=== PATIENT | male | born 1935 | race Caucasian/White ===

== ENCOUNTER 2016-08-20 16:02 | Observation (INO) | payer MEDICARE ==
[~2016-08-20 16:02] MED LIST: ADULT ASPIRIN81 MG PO; ALENDRONATE SOD10 MG PO; ALPRAZOLAM OD0.25 MG PO; ASPIR 8181 MG PO; ATORVASTATIN CA10 MG PO; ATROVENT 0.03%30 ML; BISOPROLOL FUMARATE; CALCIUM; CARBIDOPA/LEVO1 EACH PO; COUMADIN2 MG PO; COUMADIN3 M1 PO; COUMADIN3 MG PO; CULTURELLE1 CA1 PO; CULTURELLE1 EACH PO; DIGITEK125 MC1 PO; DIGOX125 MC1 PO; EQL FISH OIL 1,1 CA1 PO; FLAGYL500 MG PO; FOSAMAX70 MG PO; K-DUR20 MEQ/TA1 PO; KLOR-CON M20 MEQ/TAB PO; LANOXIN125 MC1 PO; LASIX40 M1 PO; LASIX40 MG PO; LATANOPROST2.5 ML OP; LEVAQUIN500 MG PO; LEVOTHYROXINE25 MCG PO; LEVOXYL PO; LEVOXYL25 MCG PO; LIPITOR10 M1; LIPITOR10 M1 PO; LIPITOR10 MG PO; LISINOPRIL; LISINOPRIL2.5 M1 PO; LISINOPRIL2.5 MG PO; MULTI VITAMIN1 EAC1 PO; MULTI-DAY VITA1 EACH PO; MULTI-VITAMIN1 EAC1 PO; OMNICEF300 MG PO; OYSTER CALCIUM500 MG PO; POTASSIUM CHLO20 ME3 PO; PROAIR HFA8.5 GM INH; PROSCAR5 MG PO; PROZAC20 M1 PO; PROZAC20 M2 PO; PROZAC20 M3 PO; SINEMET 25-1001 TA1 PO; SPIRONOLACTONE25 M1 PO; SPIRONOLACTONE25 M2 PO; SYMBICORT 160-4.6 GM IH; SYNTHROID25 MCG PO; TAMIFLU75 MG/CAP PO; TYLENOL325 MG PO; UROXATRAL10 MG PO; VANCOMYCIN PO; VANCOMYCIN25 MG/1 ML PO; VITAMIN D3; VITAMIN D31000 UNI2 PO; VITAMIN D34000 UNIT PO; WARFARIN; WELCHOL PO; WELCHOL625 M1 PO; WELCHOL625 MG PO; XALATAN2.5 ML OP; XANAX0.25 M1 PO; ZEBETA5 M1 PO; ZEBETA5 M2 PO; ZEBETA5 MG PO
[2016-08-20] MEDS ORDERED: ASPIR 8181 M1 PO (16:20)
[2016-08-20] MEDS ORDERED: CALCIUM500 M3 PO (16:32)
[2016-08-20] MEDS ORDERED: TAMIFLU75 MG/CAP PO (18:18)
[2016-08-20 20:37] LABS: BASO % 0.1 % (0-2); EOS % 0.5 % (0-7); HCT-HEMATOCRIT 35.3 % (36.0-53.5); HGB-HEMOGLOBIN 12.4 gm/dl (13.5-17.0); IMMATURE GRANULOCYTES ABSOLUTE 0.02 tho/cmm (0-0.03); IMMATURE GRANULOCYTES PERCENT 0.3 % (0-0.3); LYMPH ABSOLUTE COUNT 0.8 tho/cmm (0.8-4.5); MCH (MEAN CORPUSCULAR HGB) 31.1 pg (28.0-32.0); MCHC MEAN CORPUSCULAR HGB CONC 35.1 % (32.0-36.0); MCV (MEAN CELL VOLUME) 88.5 fl (82.0-96.0); MEAN PLATELET VOLUME 9.6 cmc (9.4-12.4); MONOCYTE ABSOLUTE COUNT 0.7 tho/cmm (0.0-1.2); NEUTROPHIL ABSOLUTE COUNT 6.2 tho/cmm (1.6-8.0); NEUTROPHIL-AUTOMATED 6.2 tho/cmm (1.6-8.0); NEUTROPHILS % 80.1 % (40-80); PLATELET COUNT 211 tho/cmm (150-450); RED BLOOD COUNT 3.99 mil/cmm (4.40-5.70); WHITE BLOOD COUNT 7.8 tho/cmm (4.0-10.0)
[2016-08-20 20:45] LABS: PARTIAL THROMBOPLASTIN TIME 35 SECONDS (22-38)
[2016-08-20 21:00] LABS: ALB/GLOB RATIO 0.8 (0.8-2.0); ALBUMIN 3.6 g/dl (3.5-5.0); ALKALINE PHOSPHATASE 91 U/L (33-138); ALT/SGPT 24 U/L (12-78); ANION GAP 15 mmol/L (0-20); AST/SGOT 37 U/L (10-40); BILIRUBIN,TOTAL 0.6 mg/dl (0.0-1.5); BLOOD UREA NITROGEN 23 mg/dl (6-24); CALCIUM 8.3 mg/dl (8.5-10.5); CARBON DIOXIDE-VENOUS 23 mmol/L (22-32); CHLORIDE 95 mmol/l (96-110); CREATININE 1.08 mg/dl (0.60-1.30); GLUCOSE 112 mg/dL (70-110); POTASSIUM 4.3 mmol/L (3.7-5.1); SODIUM 129 mmol/L (135-145); eGFR VALUE FOR BLACK >60 mL/Min
[2016-08-20 21:03] LABS: INR 3.4 INR (0.9-1.1); PROTHROMBIN TIME 40.9 SECONDS (9.0-13.6)
[2016-08-21 03:40] LABS: URINE BILIRUBIN NEGATIVE (NEG); URINE BLOOD NEGATIVE (NEG); URINE GLUCOSE (UA) NEGATIVE (NEG); URINE KETONE NEGATIVE (NEG); URINE LEUKOCYTE ESTERASE POSITIVE (NEG); URINE NITRITE POSITIVE (NEG); URINE PH 6.5 (5.0-8.0); URINE PROTEIN NEGATIVE (NEG)
[2016-08-21 03:56] LABS: URINE APPEARANCE CLEAR; URINE COLOR PALE YELLOW; URINE SPECIFIC GRAVITY 1.005 (1.003-1.030)
[2016-08-21 04:05] LABS: URINE BACTERIA 2+; URINE EPITHELIAL CELLS 0-5 /[HPF] (0-10); URINE RBC 0 /[HPF] (0-5); URINE WBC 0-5 /[HPF] (0-5)
[2016-08-21 06:12] LABS: INR 2.9 INR (0.9-1.1); PROTHROMBIN TIME 34.9 SECONDS (9.0-13.6)
[2016-08-21 06:30] LABS: C-REACTIVE PROTEIN 2.9 mg/dl (0-0.9)
[2016-08-22 06:05] LABS: BASO % 0.3 % (0-2); EOS % 2.4 % (0-7); EOSINOPHIL ABSOLUTE COUNT 0.2 tho/cmm (0.0-0.7); HGB-HEMOGLOBIN 11.5 gm/dl (13.5-17.0); IMMATURE GRANULOCYTES ABSOLUTE 0.02 tho/cmm (0-0.03); IMMATURE GRANULOCYTES PERCENT 0.3 % (0-0.3); LYMPH % 14.7 % (20-45); MCH (MEAN CORPUSCULAR HGB) 30.9 pg (28.0-32.0); MCHC MEAN CORPUSCULAR HGB CONC 34.8 % (32.0-36.0); MCV (MEAN CELL VOLUME) 88.7 fl (82.0-96.0); MEAN PLATELET VOLUME 9.8 cmc (9.4-12.4); MONOCYTE ABSOLUTE COUNT 0.7 tho/cmm (0.0-1.2); NEUTROPHIL ABSOLUTE COUNT 4.9 tho/cmm (1.6-8.0); NEUTROPHIL-AUTOMATED 4.9 tho/cmm (1.6-8.0); NEUTROPHILS % 72.3 % (40-80); PLATELET COUNT 197 tho/cmm (150-450); RED BLOOD COUNT 3.72 mil/cmm (4.40-5.70); RED CELL DISTRIBUTION WIDTH 13.2 % (12.4-16.4); WHITE BLOOD COUNT 6.7 tho/cmm (4.0-10.0)
[2016-08-22 06:22] LABS: INR 2.5 INR (0.9-1.1); PROTHROMBIN TIME 29.6 SECONDS (9.0-13.6)
[2016-08-22 06:23] LABS: ANION GAP 12 mmol/L (0-20); BLOOD UREA NITROGEN 23 mg/dl (6-24); C-REACTIVE PROTEIN 3.3 mg/dl (0-0.9); CALCIUM 7.5 mg/dl (8.5-10.5); CARBON DIOXIDE-VENOUS 26 mmol/L (22-32); CHLORIDE 99 mmol/l (96-110); CREATININE 1.03 mg/dl (0.60-1.30); GLUCOSE 94 mg/dL (70-110); POTASSIUM 3.5 mmol/L (3.7-5.1); SODIUM 133 mmol/L (135-145); eGFR VALUE FOR BLACK >60 mL/Min
[2016-08-22 06:46] LABS: PROCALCITONIN <0.05 ng/ml (0.05-0.09)
[2016-08-22] MEDS ORDERED: BACTRIM DS TAB1 EAC2 PO (10:39)
[2016-08-22] MEDS ORDERED: MACROBID 100 M100 M1 PO (13:45)
== END 2016-08-22 13:52 ==
LOC: CAR1 16:02
PROVIDERS: Family Medicine; Internal Medicine Cardiovascular Disease; Registered Nurse; ADMIT Internal Medicine
DX: J10.1 Influenza due to other identified influenza virus with other respiratory manifestations (principal); N39.0 Urinary tract infection, site not specified; J44.9 Chronic obstructive pulmonary disease, unspecified; I11.0 Hypertensive heart disease with heart failure; I50.22 Chronic systolic (congestive) heart failure; I48.91 Unspecified atrial fibrillation; I25.10 Atherosclerotic heart disease of native coronary artery without angina pectoris; E03.9 Hypothyroidism, unspecified; E78.5 Hyperlipidemia, unspecified; N40.0 Benign prostatic hyperplasia without lower urinary tract symptoms; F32.9 Major depressive disorder, single episode, unspecified; G47.33 Obstructive sleep apnea (adult) (pediatric); I25.5 Ischemic cardiomyopathy; Z79.01 Long term (current) use of anticoagulants; Z79.82 Long term (current) use of aspirin; Z79.899 Other long term (current) drug therapy; Z91.040 Latex allergy status; Z87.891 Personal history of nicotine dependence; Z90.49 Acquired absence of other specified parts of digestive tract; Z95.810 Presence of automatic (implantable) cardiac defibrillator; Z98.49 Cataract extraction status, unspecified eye; Z98.52 Vasectomy status; Z98.890 Other specified postprocedural states
CPT/HCPCS: G0378; G0379; G8978-GO-CJ; G8978-GP-CJ; G8979-GO-CI; G8979-GP-CJ; G8980-GO-CJ; G8980-GP-CJ; J0456; J1940; J7030; J7050